=== PATIENT | female | born 1985 | race Two or more races ===

== ENCOUNTER 2022-04-03 10:58 | Observation (INO) | payer MEDICAID, OTHER ==
[~2022-04-03] VITALS: Ht 152.4 cm; Wt 63.5 kg
[2022-04-03] MEDS ORDERED: FERR27TA2 PO (12:03)
[2022-04-03] MEDS ORDERED: PREN-96 PO (12:03)
== END 2022-04-03 13:20 | disposition home or self-care (01) ==
LOC: LDRP 10:58 → EDBD 10:58
PROVIDERS: ADMIT Obstetrics & Gynecology; ATTEND Obstetrics & Gynecology
DX: O36.8130 Decreased fetal movements, third trimester, not applicable or unspecified (principal); Z3A.37 37 weeks gestation of pregnancy; Z87.891 Personal history of nicotine dependence
CPT/HCPCS: 59025; 76818; 81002; 94760; G0378